=== PATIENT | female | born 1935 | race Caucasian/White ===

== ENCOUNTER 2023-02-27 13:23 | Inpatient (IN) | payer MEDICARE, SELFPAY ==
[~2023-02-27 13:23] MED LIST: Iopamidol-370 76% 500 ML MDV (1 ML CHARGE) ONE
[2023-02-27 14:31] LABS: #Basophils 0.1 thou/uL (0.0-0.2); #Eosinphils 0.1 thou/uL (0.0-0.7); #Neutrophils 11.7 thou/uL (1.40-6.50); %Basophils 0.5 % (0.0-1.0); %Eosinophils 0.5 % (0.0-10.0); %Lymphocytes 15.7 % (21.0-51.0); %Monocytes 6.5 % (0.0-10.0); %Neutrophils 76.4 % (42.0-75.0); Hemoglobin 16.2 g/dL (12.0-16.0); Mean Corpuscular HGB CONC 31.2 g/dL (32.0-36.0); Mean Corpuscular Hemoglobin 28.7 pg (27.0-31.0); Mean Platelet Volume 9.1 fL (7.4-10.4); Platelet Count 289 10x3/uL (130-400); RBC Distribution Width 16.1 % (11.5-14.5); Red Blood Cell (RBC) Count 5.65 mill/uL (4.20-5.40); White Blood Cell (WBC) Count 15.3 10x3/uL (4.8-10.8)
[2023-02-27 14:41] LABS: Bacteria/HPF None Seen HPF (None Seen); Bilirubin Negative (Negative); Blood, Urine Negative (Negative); CAUTI Indications for Culture Alt mental st,lethar; Clarity Clear (Clear); Glucose, Urine (Dipstick) Normal (Negative); Ketone, Urine Trace mg/dL (Negative); Leukocyte 250 Leu/uL (Negative); Nitrite Negative (Negative); Protein, Urine (Dipstick) 30 mg/dL (Neg-Trace); RBC/HPF 0-3 HPF (0-3); Specific Gravity, Urine 1.026 (1.002-1.036); Squamous Epithelial 0-3 HPF (0-3); pH, Urine 5.5 (5.0-9.0)
[2023-02-27 14:43] LABS: Urine Culture Reflex No No
[2023-02-27 14:51] LABS: Amphetamine Not Detected (NotDetected); Barbiturates Screen Not Detected (NotDetected); Benzodiazepine Screen Not Detected (NotDetected); Cocaine Metabolite Screen Not Detected (NotDetected); Methadone Not Detected (NotDetected); Methamphetamine Not Detected (NotDetected); Opiate Screen Not Detected (NotDetected); Oxycodone Screen Not Detected (NotDetected); Phencyclidine (PCP) Not Detected (NotDetected); THC/Cannabinoid Screen Not Detected (NotDetected); Tricyclic Screen Not Detected (NotDetected)
[2023-02-27 14:53] LABS: Acetaminophen Less than 10 mcg/mL (10.0-30.0); Alcohol Less than 10.0 mg/dL (Less than 10); Lipase 46 U/L (8-78); Salicylate Less than 8.0 mg/dL (15.0-30.0)
[2023-02-27 14:55] LABS: Troponin I 0.033 ng/mL (< 0.028)
[2023-02-27 15:42] LABS: ALT (SGPT) 12 U/L (8-55); AST (SGOT) 16 U/L (5-34); Albumin 4.3 g/dL (3.4-4.8); Alkaline Phosphatase 71 U/L (40-110); Anion Gap 22 mmol/L (10-20); BUN (Urea Nitrogen) 13 mg/dL (9.8-20.1); Calc. Creatinine Clearance 0 mL/min (70-130); Calcium 8.8 mg/dL (7.8-10.44); Carbon Dioxide 13 mmol/L (23-31); Chloride 110 mmol/L (98-107); Estimated GFR 68; Globulin 2.9 g/dL (2.4-3.5); Glucose 114 mg/dL (83-110); Potassium 4.2 mmol/L (3.5-5.1); Protein, Total 7.2 g/dL (5.8-8.1); Sodium 141 mmol/L (136-145)
[2023-02-27] MEDS ORDERED: cefTRIAXone (ROCEPHIN) 1 GM VIAL ONE (17:30)
[2023-02-27] MEDS ORDERED: metroNIDAZOLE 500 MG/100 ML BAG ONE (17:31)
[2023-02-27] MEDS ORDERED: Bisacodyl 5 MG TAB PO PRN (18:20)
[2023-02-27] MEDS ORDERED: Acetaminophen 325 MG TAB PO PRN (18:20)
[2023-02-27] MEDS ORDERED: HYDROcodone/Acetaminophen 5/325 mg Tablet PO PRN (18:20)
[2023-02-27] MEDS ORDERED: Piperacillin/Tazobactam 3.375 GM in Sodium Chloride 0.9% 100 ML IVPB SCH ×2 (18:30→23:59)
[2023-02-27] MEDS ORDERED: Sodium Chloride 0.9% 1,000 ML IV SCH (18:30)
[2023-02-27] MEDS ORDERED: Heparin 5,000 UNITS/ML VIAL SC SCH (21:00)
[2023-02-27] MEDS ORDERED: Famotidine 20 MG TAB PO SCH (21:00)
[2023-02-27] MEDS: Piperacillin/Tazobactam 3.375 GM in Sodium Chloride 0.9% 100 ML IVPB SCH (21:39)
[2023-02-27 22:07] LABS: Lactic Acid 1.7 mmol/L (0.5-2.2)
[2023-02-27 22:40] VITALS: BMI 22.4
[2023-02-27 23:00] LABS: Troponin I 0.398 ng/mL (< 0.028)
[2023-02-28] MEDS: Piperacillin/Tazobactam 3.375 GM in Sodium Chloride 0.9% 100 ML IVPB SCH ×3 (02:00→17:21)
[2023-02-28] MEDS ORDERED: Aspirin Chewable 81 MG TAB PO SCH (02:15)
[2023-02-28 03:23] LABS: Troponin I 0.479 ng/mL (< 0.028)
[2023-02-28 03:36] LABS: ALT (SGPT) 8 U/L (8-55); AST (SGOT) 15 U/L (5-34); Albumin 3.5 g/dL (3.4-4.8); Alkaline Phosphatase 59 U/L (40-110); Anion Gap 16 mmol/L (10-20); BUN (Urea Nitrogen) 10 mg/dL (9.8-20.1); Bilirubin, Total 0.9 mg/dL (0.2-1.2); Calc. Creatinine Clearance 53 mL/min (70-130); Calcium 8.2 mg/dL (7.8-10.44); Carbon Dioxide 16 mmol/L (23-31); Chloride 112 mmol/L (98-107); Estimated GFR 84; Globulin 2.5 g/dL (2.4-3.5); Glucose 100 mg/dL (83-110); Potassium 3.1 mmol/L (3.5-5.1); Sodium 141 mmol/L (136-145)
[2023-02-28] MEDS: Famotidine 20 MG TAB PO SCH (07:55)
[2023-02-28] MEDS: Lisinopril 10 MG TAB PO SCH (07:55)
[2023-02-28] MEDS: Aspirin Chewable 81 MG TAB PO SCH (07:55)
[2023-02-28 09:52] LABS: Hematocrit 45.2 % (36.0-47.0); Hemoglobin 14.3 g/dL (12.0-16.0); Mean Corpuscular HGB CONC 31.6 g/dL (32.0-36.0); Mean Corpuscular Hemoglobin 28.3 pg (27.0-31.0); Mean Corpuscular Volume 89.5 fl (78.0-98.0); Mean Platelet Volume 9.1 fL (7.4-10.4); Platelet Count 282 10x3/uL (130-400); RBC Distribution Width 15.9 % (11.5-14.5); Red Blood Cell (RBC) Count 5.05 mill/uL (4.20-5.40); White Blood Cell (WBC) Count 10.4 10x3/uL (4.8-10.8)
[2023-02-28] MEDS: Ipratropium Bromide 2.5 ml Neb NEB SCH ×2 (18:35→23:11)
[2023-02-28] MEDS: Carvedilol 6.25 MG TAB PO SCH (20:54)
[2023-02-28] MEDS: metFORMIN 500 MG TAB PO SCH (20:54)
[2023-02-28] MEDS: Atorvastatin Calcium 20 MG TAB PO SCH (20:54)
[2023-02-28] MEDS: Mirtazapine 15 MG TAB PO SCH (20:55)
[2023-02-28] MEDS: Megestrol Acetate 40 MG TAB PO SCH (20:55)
[2023-02-28] MEDS ORDERED: Famotidine 20 MG TAB PO SCH (21:00)
[2023-03-01] MEDS: Melatonin 3 MG TAB PO PRN ×2 (00:19→21:05)
[2023-03-01] MEDS: Piperacillin/Tazobactam 3.375 GM in Sodium Chloride 0.9% 100 ML IVPB SCH ×2 (02:14→09:41)
[2023-03-01] MEDS ORDERED: Ondansetron PF 4 MG/2 ML Vial IVP PRN (05:52)
[2023-03-01] MEDS ORDERED: Ondansetron ODT 4 MG TAB PO PRN (05:52)
[2023-03-01] MEDS: Ipratropium Bromide 2.5 ml Neb NEB SCH ×4 (06:42→22:23)
[2023-03-01] MEDS: Famotidine 20 MG TAB PO SCH ×2 (08:13→09:47)
[2023-03-01] MEDS ORDERED: Apixaban 2.5 MG TAB PO SCH (09:30)
[2023-03-01] MEDS: Lisinopril 10 MG TAB PO SCH (09:43)
[2023-03-01] MEDS: Anastrozole 1 MG TAB PO SCH (09:45)
[2023-03-01] MEDS: Aspirin Chewable 81 MG TAB PO SCH (09:45)
[2023-03-01] MEDS: Carvedilol 6.25 MG TAB PO SCH ×2 (09:46→21:05)
[2023-03-01] MEDS: Megestrol Acetate 40 MG TAB PO SCH ×2 (09:46→21:05)
[2023-03-01] MEDS: metFORMIN 500 MG TAB PO SCH ×2 (09:46→21:05)
[2023-03-01] MEDS: Apixaban 2.5 MG TAB PO SCH (18:10)
[2023-03-01] MEDS: Amoxicillin/Potassium Clav 500 MG TAB PO SCH (21:04)
[2023-03-01] MEDS: Atorvastatin Calcium 20 MG TAB PO SCH (21:04)
[2023-03-01] MEDS: Mirtazapine 15 MG TAB PO SCH (21:05)
[2023-03-02] MEDS: Apixaban 2.5 MG TAB PO SCH ×2 (06:04→18:01)
[2023-03-02] MEDS: Ipratropium Bromide 2.5 ml Neb NEB SCH ×4 (06:42→23:15)
[2023-03-02 06:44] LABS: #Basophils 0.1 thou/uL (0.0-0.2); #Eosinphils 0.1 thou/uL (0.0-0.7); #Neutrophils 9.5 thou/uL (1.40-6.50); %Basophils 0.4 % (0.0-1.0); %Eosinophils 1.1 % (0.0-10.0); %Lymphocytes 14.3 % (21.0-51.0); %Neutrophils 75.8 % (42.0-75.0); Hematocrit 42.2 % (36.0-47.0); Hemoglobin 13.9 g/dL (12.0-16.0); Mean Corpuscular HGB CONC 32.9 g/dL (32.0-36.0); Mean Corpuscular Hemoglobin 28.5 pg (27.0-31.0); Mean Corpuscular Volume 86.7 fl (78.0-98.0); Mean Platelet Volume 8.8 fL (7.4-10.4); Platelet Count 278 10x3/uL (130-400); Red Blood Cell (RBC) Count 4.87 mill/uL (4.20-5.40); White Blood Cell (WBC) Count 12.5 10x3/uL (4.8-10.8)
[2023-03-02 07:00] LABS: Anion Gap 12 mmol/L (10-20); BUN (Urea Nitrogen) 11 mg/dL (9.8-20.1); Calc. Creatinine Clearance 50 mL/min (70-130); Calcium 8.5 mg/dL (7.8-10.44); Carbon Dioxide 21 mmol/L (23-31); Chloride 115 mmol/L (98-107); Estimated GFR 82; Glucose 122 mg/dL (83-110); Sodium 145 mmol/L (136-145)
[2023-03-02 07:19] LABS: Potassium 2.6 mmol/L (3.5-5.1)
[2023-03-02] MEDS ORDERED: Electrolyte Replacement Protocol 1 EACH FS ONE (09:04)
[2023-03-02] MEDS: metFORMIN 500 MG TAB PO SCH ×2 (09:24→21:30)
[2023-03-02] MEDS: Potassium Chloride 20 MEQ TAB PO SCH ×2 (09:24→18:01)
[2023-03-02] MEDS: Anastrozole 1 MG TAB PO SCH (09:24)
[2023-03-02] MEDS: Aspirin Chewable 81 MG TAB PO SCH (09:25)
[2023-03-02] MEDS: Amoxicillin/Potassium Clav 500 MG TAB PO SCH ×2 (09:25→21:30)
[2023-03-02] MEDS: Megestrol Acetate 40 MG TAB PO SCH ×2 (09:25→21:30)
[2023-03-02] MEDS: Carvedilol 6.25 MG TAB PO SCH ×2 (09:25→21:30)
[2023-03-02] MEDS: Lisinopril 10 MG TAB PO SCH (09:25)
[2023-03-02] MEDS: Famotidine 20 MG TAB PO SCH (09:25)
[2023-03-02 09:26] LABS: Magnesium 1.8 mg/dL (1.6-2.6)
[2023-03-02] MEDS ORDERED: Magnesium 2 GM/50 ML(in water) 2 GM in Premix Bag 1 BAG IVPB SCH (10:15)
[2023-03-02] MEDS ORDERED: Electrolyte Replacement Protocol FS PRN (10:15)
[2023-03-02] MEDS ORDERED: Potassium Chloride 20 MEQ TAB PO SCH (13:30)
[2023-03-02] MEDS: Atorvastatin Calcium 20 MG TAB PO SCH (21:30)
[2023-03-02] MEDS: Mirtazapine 15 MG TAB PO SCH (21:30)
[2023-03-03] MEDS: Apixaban 2.5 MG TAB PO SCH ×2 (05:38→16:42)
[2023-03-03 06:27] LABS: #Basophils 0.1 thou/uL (0.0-0.2); #Eosinphils 0.1 thou/uL (0.0-0.7); #Neutrophils 7.6 thou/uL (1.40-6.50); %Basophils 0.5 % (0.0-1.0); %Eosinophils 1.2 % (0.0-10.0); %Lymphocytes 21.3 % (21.0-51.0); %Monocytes 8.7 % (0.0-10.0); %Neutrophils 67.6 % (42.0-75.0); Hematocrit 45.2 % (36.0-47.0); Hemoglobin 14.4 g/dL (12.0-16.0); Mean Corpuscular HGB CONC 31.9 g/dL (32.0-36.0); Mean Corpuscular Hemoglobin 28.9 pg (27.0-31.0); Mean Platelet Volume 8.7 fL (7.4-10.4); Platelet Count 313 10x3/uL (130-400); RBC Distribution Width 16.7 % (11.5-14.5); Red Blood Cell (RBC) Count 4.99 mill/uL (4.20-5.40); White Blood Cell (WBC) Count 11.2 10x3/uL (4.8-10.8)
[2023-03-03 06:38] LABS: Mean Corpuscular Volume 90.6 fl (78.0-98.0)
[2023-03-03] MEDS: Ipratropium Bromide 2.5 ml Neb NEB SCH ×4 (06:45→23:47)
[2023-03-03 06:55] LABS: Anion Gap 13 mmol/L (10-20); BUN (Urea Nitrogen) 9 mg/dL (9.8-20.1); Calc. Creatinine Clearance 53 mL/min (70-130); Calcium 9.1 mg/dL (7.8-10.44); Carbon Dioxide 19 mmol/L (23-31); Chloride 117 mmol/L (98-107); Estimated GFR 84; Glucose 109 mg/dL (83-110); Magnesium 2.2 mg/dL (1.6-2.6); Potassium 3.8 mmol/L (3.5-5.1); Sodium 145 mmol/L (136-145)
[2023-03-03] MEDS: Famotidine 20 MG TAB PO SCH (08:49)
[2023-03-03] MEDS: metFORMIN 500 MG TAB PO SCH ×2 (08:49→21:00)
[2023-03-03] MEDS: Aspirin Chewable 81 MG TAB PO SCH (08:49)
[2023-03-03] MEDS: Amoxicillin/Potassium Clav 500 MG TAB PO SCH ×2 (08:49→20:58)
[2023-03-03] MEDS: Megestrol Acetate 40 MG TAB PO SCH ×2 (08:49→20:59)
[2023-03-03] MEDS: Carvedilol 6.25 MG TAB PO SCH ×2 (08:49→20:59)
[2023-03-03] MEDS: Lisinopril 10 MG TAB PO SCH (08:49)
[2023-03-03] MEDS: Potassium Chloride 20 MEQ TAB PO SCH ×2 (08:50→16:42)
[2023-03-03] MEDS: Anastrozole 1 MG TAB PO SCH (08:50)
[2023-03-03] MEDS: Mirtazapine 15 MG TAB PO SCH (21:00)
[2023-03-03] MEDS: Atorvastatin Calcium 20 MG TAB PO SCH (21:00)
[2023-03-04] MEDS: Apixaban 2.5 MG TAB PO SCH ×2 (05:15→17:12)
[2023-03-04 07:12] LABS: Magnesium 1.8 mg/dL (1.6-2.6)
[2023-03-04] MEDS: Ipratropium Bromide 2.5 ml Neb NEB SCH ×4 (07:49→23:34)
[2023-03-04] MEDS ORDERED: Magnesium 2 GM/50 ML(in water) 2 GM in Premix Bag 1 BAG IVPB SCH (08:00)
[2023-03-04] MEDS: Lisinopril 10 MG TAB PO SCH (09:20)
[2023-03-04] MEDS: Famotidine 20 MG TAB PO SCH (09:20)
[2023-03-04] MEDS: Carvedilol 6.25 MG TAB PO SCH ×2 (09:20→20:46)
[2023-03-04] MEDS: Aspirin Chewable 81 MG TAB PO SCH (09:20)
[2023-03-04] MEDS: Potassium Chloride 20 MEQ TAB PO SCH ×2 (09:20→17:12)
[2023-03-04] MEDS: Anastrozole 1 MG TAB PO SCH (09:20)
[2023-03-04] MEDS: Amoxicillin/Potassium Clav 500 MG TAB PO SCH ×2 (09:20→20:46)
[2023-03-04] MEDS: Megestrol Acetate 40 MG TAB PO SCH ×2 (09:21→20:46)
[2023-03-04] MEDS: metFORMIN 500 MG TAB PO SCH ×2 (09:21→20:46)
[2023-03-04] MEDS: Melatonin 3 MG TAB PO PRN (20:46)
[2023-03-04] MEDS: Atorvastatin Calcium 20 MG TAB PO SCH (20:46)
[2023-03-04] MEDS: Mirtazapine 15 MG TAB PO SCH (20:46)
[2023-03-05] MEDS: Apixaban 2.5 MG TAB PO SCH ×2 (04:54→17:19)
[2023-03-05] MEDS: Ipratropium Bromide 2.5 ml Neb NEB SCH ×2 (07:14→14:07)
[2023-03-05] MEDS: Megestrol Acetate 40 MG TAB PO SCH ×2 (09:00→20:06)
[2023-03-05] MEDS: metFORMIN 500 MG TAB PO SCH ×2 (09:00→20:08)
[2023-03-05] MEDS: Carvedilol 6.25 MG TAB PO SCH ×2 (09:00→20:06)
[2023-03-05] MEDS: Anastrozole 1 MG TAB PO SCH (09:00)
[2023-03-05] MEDS: Potassium Chloride 20 MEQ TAB PO SCH ×2 (09:00→17:19)
[2023-03-05] MEDS: Amoxicillin/Potassium Clav 500 MG TAB PO SCH ×2 (09:00→20:06)
[2023-03-05] MEDS: Aspirin Chewable 81 MG TAB PO SCH (09:00)
[2023-03-05] MEDS: Lisinopril 10 MG TAB PO SCH (09:00)
[2023-03-05] MEDS: Famotidine 20 MG TAB PO SCH (09:00)
[2023-03-05] MEDS ORDERED: Ipratropium Bromide 2.5 ml Neb NEB PRN (15:58)
[2023-03-05] MEDS: Atorvastatin Calcium 20 MG TAB PO SCH (20:06)
[2023-03-05] MEDS: Mirtazapine 15 MG TAB PO SCH (20:07)
[2023-03-06] MEDS: Apixaban 2.5 MG TAB PO SCH ×2 (05:23→17:54)
[2023-03-06] MEDS: Potassium Chloride 20 MEQ TAB PO SCH ×2 (08:37→17:53)
[2023-03-06] MEDS: Amoxicillin/Potassium Clav 500 MG TAB PO SCH ×2 (08:37→20:13)
[2023-03-06] MEDS: Carvedilol 6.25 MG TAB PO SCH ×2 (08:37→20:13)
[2023-03-06] MEDS: Aspirin Chewable 81 MG TAB PO SCH (08:37)
[2023-03-06] MEDS: Megestrol Acetate 40 MG TAB PO SCH ×2 (08:37→20:14)
[2023-03-06] MEDS: Anastrozole 1 MG TAB PO SCH (08:38)
[2023-03-06] MEDS: metFORMIN 500 MG TAB PO SCH ×2 (08:38→20:16)
[2023-03-06] MEDS: Famotidine 20 MG TAB PO SCH (08:38)
[2023-03-06] MEDS: Lisinopril 10 MG TAB PO SCH (08:38)
[2023-03-06] MEDS: Atorvastatin Calcium 20 MG TAB PO SCH (20:13)
[2023-03-06] MEDS: Mirtazapine 15 MG TAB PO SCH (20:16)
[2023-03-07] MEDS: Apixaban 2.5 MG TAB PO SCH ×2 (05:20→17:27)
[2023-03-07] MEDS: Anastrozole 1 MG TAB PO SCH (09:28)
[2023-03-07] MEDS: Amoxicillin/Potassium Clav 500 MG TAB PO SCH (09:28)
[2023-03-07] MEDS: Aspirin Chewable 81 MG TAB PO SCH (09:28)
[2023-03-07] MEDS: Potassium Chloride 20 MEQ TAB PO SCH ×2 (09:28→17:27)
[2023-03-07] MEDS: Famotidine 20 MG TAB PO SCH (09:29)
[2023-03-07] MEDS: Carvedilol 6.25 MG TAB PO SCH ×2 (09:29→21:40)
[2023-03-07] MEDS: metFORMIN 500 MG TAB PO SCH ×2 (09:29→21:40)
[2023-03-07] MEDS: Megestrol Acetate 40 MG TAB PO SCH ×2 (09:29→21:39)
[2023-03-07] MEDS: Lisinopril 10 MG TAB PO SCH (09:29)
[2023-03-07] MEDS: Atorvastatin Calcium 20 MG TAB PO SCH (21:39)
[2023-03-07] MEDS: Mirtazapine 15 MG TAB PO SCH (21:39)
[2023-03-08] MEDS: Apixaban 2.5 MG TAB PO SCH ×2 (05:21→17:31)
[2023-03-08] MEDS: Aspirin Chewable 81 MG TAB PO SCH (09:21)
[2023-03-08] MEDS: Megestrol Acetate 40 MG TAB PO SCH ×2 (09:21→21:09)
[2023-03-08] MEDS: Lisinopril 10 MG TAB PO SCH (09:21)
[2023-03-08] MEDS: metFORMIN 500 MG TAB PO SCH ×2 (09:21→21:09)
[2023-03-08] MEDS: Potassium Chloride 20 MEQ TAB PO SCH ×2 (09:21→17:30)
[2023-03-08] MEDS: Carvedilol 6.25 MG TAB PO SCH ×2 (09:21→21:09)
[2023-03-08] MEDS: Anastrozole 1 MG TAB PO SCH (09:21)
[2023-03-08] MEDS: Famotidine 20 MG TAB PO SCH (09:21)
[2023-03-08] MEDS: Mirtazapine 15 MG TAB PO SCH (21:09)
[2023-03-08] MEDS: Atorvastatin Calcium 20 MG TAB PO SCH (21:09)
[2023-03-09] MEDS: Apixaban 2.5 MG TAB PO SCH ×2 (05:20→17:29)
[2023-03-09] MEDS: Lisinopril 10 MG TAB PO SCH (08:50)
[2023-03-09] MEDS: Famotidine 20 MG TAB PO SCH (08:50)
[2023-03-09] MEDS: Aspirin Chewable 81 MG TAB PO SCH (08:50)
[2023-03-09] MEDS: Potassium Chloride 20 MEQ TAB PO SCH ×2 (08:50→17:29)
[2023-03-09] MEDS: Carvedilol 6.25 MG TAB PO SCH ×2 (08:50→21:10)
[2023-03-09] MEDS: Anastrozole 1 MG TAB PO SCH (08:50)
[2023-03-09] MEDS: metFORMIN 500 MG TAB PO SCH ×2 (08:51→21:09)
[2023-03-09] MEDS: Megestrol Acetate 40 MG TAB PO SCH ×2 (08:51→21:10)
[2023-03-09] MEDS: Atorvastatin Calcium 20 MG TAB PO SCH (21:09)
[2023-03-09] MEDS: Mirtazapine 15 MG TAB PO SCH (21:10)
[2023-03-10] MEDS: Apixaban 2.5 MG TAB PO SCH ×2 (05:05→17:17)
[2023-03-10] MEDS: Carvedilol 6.25 MG TAB PO SCH ×2 (08:26→21:16)
[2023-03-10] MEDS: Potassium Chloride 20 MEQ TAB PO SCH ×2 (08:26→17:16)
[2023-03-10] MEDS: metFORMIN 500 MG TAB PO SCH ×2 (08:26→21:16)
[2023-03-10] MEDS: Famotidine 20 MG TAB PO SCH (08:26)
[2023-03-10] MEDS: Anastrozole 1 MG TAB PO SCH (08:26)
[2023-03-10] MEDS: Aspirin Chewable 81 MG TAB PO SCH (08:26)
[2023-03-10] MEDS: Megestrol Acetate 40 MG TAB PO SCH ×2 (08:26→21:17)
[2023-03-10] MEDS: Lisinopril 10 MG TAB PO SCH (08:27)
[2023-03-10] MEDS: Atorvastatin Calcium 20 MG TAB PO SCH (21:16)
[2023-03-10] MEDS: Mirtazapine 15 MG TAB PO SCH (21:16)
[2023-03-11] MEDS: Apixaban 2.5 MG TAB PO SCH ×2 (06:43→16:49)
[2023-03-11] MEDS: Aspirin Chewable 81 MG TAB PO SCH (08:32)
[2023-03-11] MEDS: Lisinopril 10 MG TAB PO SCH (08:32)
[2023-03-11] MEDS: metFORMIN 500 MG TAB PO SCH ×2 (08:32→21:27)
[2023-03-11] MEDS: Potassium Chloride 20 MEQ TAB PO SCH ×2 (08:32→16:49)
[2023-03-11] MEDS: Famotidine 20 MG TAB PO SCH (08:32)
[2023-03-11] MEDS: Carvedilol 6.25 MG TAB PO SCH ×2 (08:33→21:26)
[2023-03-11] MEDS: Megestrol Acetate 40 MG TAB PO SCH ×2 (08:33→21:27)
[2023-03-11] MEDS: Anastrozole 1 MG TAB PO SCH (08:33)
[2023-03-11] MEDS: Mirtazapine 15 MG TAB PO SCH (21:26)
[2023-03-11] MEDS: Atorvastatin Calcium 20 MG TAB PO SCH (21:27)
[2023-03-12] MEDS: Apixaban 2.5 MG TAB PO SCH ×2 (06:45→17:32)
[2023-03-12] MEDS: Carvedilol 6.25 MG TAB PO SCH ×2 (11:30→20:55)
[2023-03-12] MEDS: Potassium Chloride 20 MEQ TAB PO SCH ×2 (11:30→17:31)
[2023-03-12] MEDS: Aspirin Chewable 81 MG TAB PO SCH (11:30)
[2023-03-12] MEDS: Anastrozole 1 MG TAB PO SCH (11:30)
[2023-03-12] MEDS: Lisinopril 10 MG TAB PO SCH (11:31)
[2023-03-12] MEDS: Megestrol Acetate 40 MG TAB PO SCH ×2 (11:31→20:56)
[2023-03-12] MEDS: Famotidine 20 MG TAB PO SCH (11:31)
[2023-03-12] MEDS: metFORMIN 500 MG TAB PO SCH ×2 (11:31→20:56)
[2023-03-12 12:44] LABS: #Basophils 0.1 thou/uL (0.0-0.2); #Eosinphils 0.1 thou/uL (0.0-0.7); #Monocytes 0.7 thou/uL (0.11-0.59); #Neutrophils 14.3 thou/uL (1.40-6.50); %Basophils 0.6 % (0.0-1.0); %Eosinophils 0.3 % (0.0-10.0); %Lymphocytes 15.6 % (21.0-51.0); %Monocytes 3.7 % (0.0-10.0); %Neutrophils 79.2 % (42.0-75.0); Hematocrit 53.9 % (36.0-47.0); Hemoglobin 17.5 g/dL (12.0-16.0); Mean Corpuscular HGB CONC 32.5 g/dL (32.0-36.0); Mean Corpuscular Hemoglobin 28.6 pg (27.0-31.0); Mean Corpuscular Volume 88.2 fl (78.0-98.0); Mean Platelet Volume 9.1 fL (7.4-10.4); Platelet Count 396 10x3/uL (130-400); RBC Distribution Width 17.4 % (11.5-14.5); Red Blood Cell (RBC) Count 6.11 mill/uL (4.20-5.40); White Blood Cell (WBC) Count 18.1 10x3/uL (4.8-10.8)
[2023-03-12 13:19] LABS: ALT (SGPT) 23 U/L (8-55); AST (SGOT) 19 U/L (5-34); Albumin 4.4 g/dL (3.4-4.8); Alkaline Phosphatase 72 U/L (40-110); Anion Gap 16 mmol/L (10-20); BUN (Urea Nitrogen) 19 mg/dL (9.8-20.1); Bilirubin, Total 0.8 mg/dL (0.2-1.2); Calc. Creatinine Clearance 37 mL/min (70-130); Calcium 9.7 mg/dL (7.8-10.44); Carbon Dioxide 15 mmol/L (23-31); Chloride 115 mmol/L (98-107); Estimated GFR 58; Globulin 3.3 g/dL (2.4-3.5); Glucose 137 mg/dL (83-110); Potassium 4.4 mmol/L (3.5-5.1); Protein, Total 7.7 g/dL (5.8-8.1); Sodium 142 mmol/L (136-145)
[2023-03-12] MEDS ORDERED: LevoFLOXacin 750 mg/D5W 750 MG in Premix Bag 1 BAG IVPB SCH (15:00)
[2023-03-12 16:53] LABS: Bacteria/HPF None Seen HPF (None Seen); Bilirubin Negative (Negative); Blood, Urine Negative (Negative); CAUTI Indications for Culture Alt mental st,lethar; Clarity Clear (Clear); Glucose, Urine (Dipstick) Normal (Negative); Ketone, Urine Negative (Negative); Leukocyte Negative Leu/uL (Negative); Nitrite Negative (Negative); Protein, Urine (Dipstick) 20 mg/dL (Neg-Trace); RBC/HPF 0-3 HPF (0-3); Specific Gravity, Urine 1.022 (1.002-1.036); Squamous Epithelial 0-3 HPF (0-3); Urobilinogen Normal mg/dL (Less than 2); WBC/HPF 0-3 HPF (0-3); pH, Urine 5.5 (5.0-9.0)
[2023-03-12 16:55] LABS: Urine Culture Reflex No No
[2023-03-12] MEDS: Atorvastatin Calcium 20 MG TAB PO SCH (20:55)
[2023-03-12] MEDS: Mirtazapine 15 MG TAB PO SCH (20:56)
[2023-03-13] MEDS: Apixaban 2.5 MG TAB PO SCH ×2 (06:02→17:12)
[2023-03-13 06:13] LABS: #Basophils 0.1 thou/uL (0.0-0.2); #Monocytes 1.3 thou/uL (0.11-0.59); #Neutrophils 10.7 thou/uL (1.40-6.50); %Basophils 0.6 % (0.0-1.0); %Eosinophils 0.3 % (0.0-10.0); %Lymphocytes 22.8 % (21.0-51.0); %Monocytes 8.4 % (0.0-10.0); %Neutrophils 67.5 % (42.0-75.0); Hematocrit 53.6 % (36.0-47.0); Hemoglobin 17.4 g/dL (12.0-16.0); Mean Corpuscular HGB CONC 32.5 g/dL (32.0-36.0); Mean Corpuscular Hemoglobin 28.3 pg (27.0-31.0); Mean Corpuscular Volume 87.3 fl (78.0-98.0); Mean Platelet Volume 9.1 fL (7.4-10.4); Platelet Count 376 10x3/uL (130-400); RBC Distribution Width 17.9 % (11.5-14.5); Red Blood Cell (RBC) Count 6.14 mill/uL (4.20-5.40); White Blood Cell (WBC) Count 15.8 10x3/uL (4.8-10.8)
[2023-03-13 06:36] LABS: Anion Gap 17 mmol/L (10-20); BUN (Urea Nitrogen) 27 mg/dL (9.8-20.1); Calc. Creatinine Clearance 33 mL/min (70-130); Calcium 9.4 mg/dL (7.8-10.44); Carbon Dioxide 15 mmol/L (23-31); Chloride 115 mmol/L (98-107); Estimated GFR 49; Glucose 141 mg/dL (83-110); Potassium 4.1 mmol/L (3.5-5.1); Sodium 143 mmol/L (136-145)
[2023-03-13] MEDS: Potassium Chloride 20 MEQ TAB PO SCH ×2 (08:50→17:12)
[2023-03-13] MEDS: Megestrol Acetate 40 MG TAB PO SCH ×2 (08:51→20:37)
[2023-03-13] MEDS: Lisinopril 10 MG TAB PO SCH (08:51)
[2023-03-13] MEDS: Anastrozole 1 MG TAB PO SCH (08:51)
[2023-03-13] MEDS: metFORMIN 500 MG TAB PO SCH ×2 (08:51→20:37)
[2023-03-13] MEDS: Famotidine 20 MG TAB PO SCH (08:51)
[2023-03-13] MEDS: Carvedilol 6.25 MG TAB PO SCH ×2 (08:51→20:37)
[2023-03-13] MEDS: Aspirin Chewable 81 MG TAB PO SCH (08:51)
[2023-03-13] MEDS: Mirtazapine 15 MG TAB PO SCH (20:37)
[2023-03-13] MEDS: Atorvastatin Calcium 20 MG TAB PO SCH (20:37)
[2023-03-14] MEDS ORDERED: Acetaminophen 325 MG TAB PO PRN (05:40)
[2023-03-14] MEDS ORDERED: Bisacodyl 5 MG TAB PO PRN (05:40)
[2023-03-14] MEDS ORDERED: Melatonin 3 MG TAB PO PRN (05:41)
[2023-03-14] MEDS ORDERED: Ondansetron ODT 4 MG TAB PO PRN (05:42)
[2023-03-14] MEDS ORDERED: Electrolyte Replacement Protocol FS PRN (05:42)
[2023-03-14] MEDS ORDERED: Ondansetron PF 4 MG/2 ML Vial IVP PRN (05:42)
[2023-03-14] MEDS ORDERED: Ipratropium Bromide 2.5 ml Neb NEB PRN (05:43)
[2023-03-14] MEDS ORDERED: Apixaban 2.5 MG TAB PO SCH (06:00)
[2023-03-14] MEDS ORDERED: metFORMIN 500 MG TAB PO SCH (08:00)
[2023-03-14] MEDS ORDERED: Potassium Chloride 20 MEQ TAB PO SCH (08:00)
[2023-03-14] MEDS ORDERED: Anastrozole 1 MG TAB PO SCH (09:00)
[2023-03-14] MEDS ORDERED: Aspirin Chewable 81 MG TAB PO SCH (09:00)
[2023-03-14] MEDS ORDERED: Famotidine 20 MG TAB PO SCH (09:00)
[2023-03-14] MEDS ORDERED: Megestrol Acetate 40 MG TAB PO SCH (09:00)
[2023-03-14] MEDS ORDERED: Carvedilol 6.25 MG TAB PO SCH ×2 (09:15→21:00)
[2023-03-14] MEDS: Carvedilol 6.25 MG TAB PO SCH (10:08)
[2023-03-14 12:08] VITALS: BP 140/76; TEMP 98.2
[2023-03-14] MEDS ORDERED: LevoFLOXacin 750 mg/D5W 750 MG in Premix Bag 1 BAG IVPB SCH (15:00)
[2023-03-14] MEDS ORDERED: Mirtazapine 15 MG TAB PO SCH (21:00)
[2023-03-14] MEDS ORDERED: Atorvastatin Calcium 20 MG TAB PO SCH (21:00)
== END 2023-03-14 13:30 | disposition home or self-care (01) | DRG 177 ==
LOC: ERS 13:23 → T4-A 17:56 → UNDODISIN 03-13 15:23
PROVIDERS: ADMIT Internal Medicine Nephrology; ATTEND Internal Medicine
DX: J69.0 Pneumonitis due to inhalation of food and vomit (principal); G93.41 Metabolic encephalopathy; I21.A1 Myocardial infarction type 2; E87.20 Acidosis, unspecified; G30.9 Alzheimer's disease, unspecified; F02.80 Dementia in other diseases classified elsewhere, unspecified severity, without behavioral disturbance, psychotic disturbance, mood disturbance, and anxiety; E78.5 Hyperlipidemia, unspecified; K21.9 Gastro-esophageal reflux disease without esophagitis; I11.0 Hypertensive heart disease with heart failure; I50.9 Heart failure, unspecified; E11.9 Type 2 diabetes mellitus without complications; F32.A Depression, unspecified; R77.8 Other specified abnormalities of plasma proteins; R13.10 Dysphagia, unspecified; E87.6 Hypokalemia; I48.0 Paroxysmal atrial fibrillation; Z86.73 Personal history of transient ischemic attack (TIA), and cerebral infarction without residual deficits; Z88.2 Allergy status to sulfonamides
CPT/HCPCS: 36415; 36416; 51701; 70450; 71045; 74177; 74230; 80048; 80053; 80306; 80307; 81001; 82140; 83605; 83690; 83735; 84443; 84484; 85025; 85027; 87040; 87086; 93005; 93010; 93306; 94640; 96361; 96365; 96375; J0696; J1644; J1650; J1956; J2543; J3475; J3490; J7050; Q9967; S0179